=== PATIENT | male | born 1960 | race Caucasian/White ===

== ENCOUNTER 2022-06-22 11:09 | Emergency (ER) | payer BC ==
[~2022-06-22] VITALS: Ht 185.4 cm; Wt 125.0 kg
[2022-06-22] MEDS ORDERED: CARD60TA3 PO (11:20)
[2022-06-22] MEDS ORDERED: LIPI10TA PO (11:20)
[2022-06-22] MEDS ORDERED: ECOT81TA5 PO (11:20)
[2022-06-22] MEDS ORDERED: POTA1TAB21 PO (11:20)
[2022-06-22] MEDS ORDERED: PLAV1TAB2 PO (11:20)
[2022-06-22] MEDS ORDERED: METO200T28 PO (11:20)
[2022-06-22] MEDS ORDERED: OLME20TA2 PO (11:20)
[2022-06-22] MEDS ORDERED: HYDR12.55 PO (11:21)
[2022-06-22] MEDS ORDERED: PANT20TA6 PO (11:21)
[2022-06-22] MEDS ORDERED: NS 1,000 ML IV ONE (12:30)
[2022-06-22] MEDS ORDERED: MORPHINE 4 MG/ML 1ML VIAL/SYRINGE IV ONE ×2 (12:30→15:15)
[2022-06-22] MEDS ORDERED: ONDANSETRON 4MG 2ML VIAL IV ONE ×2 (12:30→15:15)
[2022-06-22] MEDS ORDERED: ISOVUE-370 76% 100ML VIAL As Ordered ONE (12:43)
[2022-06-22 12:47] LABS: BASO % 0.1 % (0.0-1.0); HEMATOCRIT 38.9 % (42.0-52.0); HEMOGLOBIN 13.1 g/dl (13.5-17.5); LYMPH # 1.4 10^3/uL (1.5-5.0); LYMPH % 10.7 % (24.0-44.0); MEAN CORPUSCULAR HEMOGLOBIN 32.8 pg (27.0-33.0); MEAN CORPUSCULAR HGB CONC 33.7 g/dl (32.0-36.5); MEAN CORPUSCULAR VOLUME 97.5 fl (80.0-96.0); MONO # 1.5 10^3/uL (0.0-0.8); MONO % 11.3 % (2.0-8.0); NEUTROPHILS # 10.2 10^3/uL (1.5-8.5); NEUTROPHILS % 77.4 % (36.0-66.0); PLATELET COUNT, AUTOMATED 205 10^3/uL (150-450); RED BLOOD COUNT 3.99 10^6/uL (4.30-6.10); WHITE BLOOD COUNT 13.2 10^3/uL (4.0-10.0)
[2022-06-22 13:08] LABS: ERYTHROCYTE SEDIMENTATION RATE 34 mm/hr (0-20)
[2022-06-22 13:19] LABS: ALBUMIN 3.5 GM/DL (3.2-5.2); BILIRUBIN,DIRECT 0.2 MG/DL (0.0-0.2); C REACTIVE PROTEIN QUANTITATIV 6.98 MG/DL (0.00-0.30); TOTAL PROTEIN 6.7 GM/DL (6.4-8.2)
[2022-06-22] MEDS ORDERED: metroNIDAZOLE 500 MG in IV 1 EA IV ONE (14:05)
[2022-06-22] MEDS ORDERED: CIPROFLOXACIN 400 MG in IV 1 EA IV ONE (14:05)
[2022-06-22] MEDS ORDERED: CIPR-249 PO (15:33)
[2022-06-22] MEDS ORDERED: METR-265 PO (15:33)
[2022-06-22] MEDS ORDERED: ONDA4TAB6 PO (15:33)
[2022-06-22] MEDS ORDERED: HYDR-3713 PO (15:49)
[2022-06-22 16:41] VITALS: BP 137/88
[2022-06-23] MEDS ORDERED: SPIR-10 PO (07:46)
[2022-06-23] MEDS ORDERED: ATOR80TA59 PO (07:46)
[2022-06-23] MEDS ORDERED: METO1TAB33 PO (07:46)
[2022-06-23] MEDS ORDERED: DILT180C70 PO (07:46)
[2022-06-23] MEDS ORDERED: FLUO20CA22 PO (07:46)
[2022-06-23] MEDS ORDERED: HUMI40KI2 SC (07:46)
[2022-06-23] MEDS ORDERED: PENI500T PO (07:46)
[2022-06-23] MEDS ORDERED: POTA-141 PO (07:46)
[2022-06-23] MEDS ORDERED: PANT40TA29 PO (07:46)
[2022-06-23] MEDS ORDERED: DEXA1.5T PO (07:46)
[2022-06-23] MEDS ORDERED: METR-265 PO (08:53)
[2022-06-23] MEDS ORDERED: CIPR-249 PO (08:53)
[2022-06-26] MEDS ORDERED: PERC5TAB12 PO (08:45)
[2022-06-26] MEDS ORDERED: AMOX875T2 PO (08:45)
[2022-06-26] MEDS ORDERED: SENO8.6T10 PO (08:45)
[2022-06-26] MEDS ORDERED: BACITAB PO (08:45)
[2022-06-26] MEDS ORDERED: SELF1KIT MC (08:48)
== END 2022-06-22 16:48 | disposition home or self-care (01) ==
LOC: M ED 11:09
DX: R11.0 Nausea (principal); R50.9 Fever, unspecified; K57.30 Diverticulosis of large intestine without perforation or abscess without bleeding; I25.2 Old myocardial infarction; I50.9 Heart failure, unspecified; I11.0 Hypertensive heart disease with heart failure
CPT/HCPCS: 74177; 80047; 80076; 83605; 83690; 85025; 85652; 86140; 96361; 96365; 96366; 96375; 96376; 99284; J0744; J2270; J2405; Q9967